=== PATIENT | male | born 1995 | race African-American/Black ===

== ENCOUNTER 2018-12-25 17:58 | Emergency (ER) | payer OTHER ==
[~2018-12-25] VITALS: Ht 172.7 cm; Wt 78.0 kg
[2018-12-25 18:02] VITALS: BP 115/68
== END 2018-12-25 19:08 | disposition home or self-care (01) ==
LOC: ER 17:58
DX: Z00.00 Encounter for general adult medical examination without abnormal findings (principal); R11.2 Nausea with vomiting, unspecified; R19.7 Diarrhea, unspecified
CPT/HCPCS: 99281

== ENCOUNTER 2019-01-08 11:28 | Emergency (ER) | payer OTHER ==
[~2019-01-08] VITALS: Ht 190.5 cm; Wt 82.0 kg
[2019-01-08 11:51] VITALS: BP 119/72
== END 2019-01-08 16:55 | disposition left against medical advice (07) ==
LOC: ER 11:28
DX: S00.269A Insect bite (nonvenomous) of unspecified eyelid and periocular area, initial encounter (principal); W57.XXXA Bitten or stung by nonvenomous insect and other nonvenomous arthropods, initial encounter; Y93.89 Activity, other specified; Y92.89 Other specified places as the place of occurrence of the external cause; Y99.8 Other external cause status; Z53.21 Procedure and treatment not carried out due to patient leaving prior to being seen by health care provider